=== PATIENT | male | born 1980 | race Caucasian/White ===

== ENCOUNTER 2024-04-29 14:28 | Emergency (ER) | payer OTHER, SELFPAY ==
[2024-04-29 14:32] VITALS: BP 162/92
--- NOTE | 2024-04-29 16:52 | ED.SKININJ ---
HPI-Injury
General
Chief Complaint: Skin Problem
Source: patient
Exam Limitations: none
Time Seen by Provider: 04/29/24 16:15
History of Present Illness-Injury
Initial Injury comments:
43-year-old male presents with persistently inflamed cyst to the right side of the anterior upper chest/neck. This started about 2 weeks ago got very inflamed and drained fluid he was on Keflex. The cyst persists. He denies fevers. No prior
issues similar to this
Past History
Past History
ED Past Medical History: None
ED Past Surgical History: None
Social History
Tobacco: Non-smoker
Alcohol: None
Drug: None
Personal:
Living: with family
Employment: Employed (Transmission Technician)
Family History
Family History: Early CAD and CAD; Negative Sudden
Phy Exam
Physical Exam
Physical Exam:
General: Well-appearing male no acute respiratory distress
Skin: 1 cm diameter slightly fluctuant mobile nodule in the subcutaneous tissue right upper chest no current drainage. Mild surrounding erythema
Extremities: No cyanosis
Course
Vital Signs
Initial and Last Documented VS:
Initial Vital Signs
Temp Pulse Resp BP Pulse Ox
97.9 F 71 16 162/92 99
04/29/24 14:32 04/29/24 14:32 04/29/24 14:32 04/29/24 14:32 04/29/24 14:32
Last Documented Vital Signs
Temp Pulse Resp BP Pulse Ox
97.9 F 71 16 162/92 99
04/29/24 14:32 04/29/24 14:32 04/29/24 14:32 04/29/24 14:32 04/29/24 14:32
MDM/Problems Addressed
Differential Diagnosis Includes:
Patient has cystlike structure right upper chest/lateral right neck. Suspect sebaceous cyst versus abscess. Discussed with patient treatment options. We decided to incise and drain. The area was cleansed and anesthetized with 1% lidocaine with
epinephrine. 11 blade was used a small amount of purulent material of was return followed by sebaceous material. I was able to visualize some of the wall of the sebaceous cyst and these pieces were removed. A dressing was applied he was discharged
*Critical Care Note
Total Time (30-74mins, 75-104mins- exclusive of procedures): Not Applicable
ED Attending Note
-
Portions of this chart may have been created with voice recognition software.� Occasional wrong word or��sound alike� substitutions may have occurred due to the inherent limitations of voice recognition software.
Discharge Plan
Departure
Patient Disposition: Home (Routine Discharge)
Date of Disposition: 04/29/24
Time of Disposition: 16:54
Patient with high blood pressure during this ER visit?: No
Discharge Problem:
Sebaceous cyst
Referrals:
Naila Mcguire CRNP [Family Provider] -
Activity Restrictions/Additional Instructions:
Keep clean. Continue with warm compresses. Return if worse otherwise follow-up with professor of oceanography for persistent symptoms
Interventions
Interventions:
ED-Skin Assessment Last Done: 04/29/24 16:12
Discharge Date and Time
Print Language: VENEZUELAN
[2024-04-29 17:15] VITALS: BP 157/96
== END 2024-04-29 17:18 | disposition home or self-care (01) ==
LOC: EMR 14:28
PROVIDERS: EMERGENCY PHYSICIAN Emergency Medicine; FAMILY PHYSICIAN Nurse Practitioner Adult Health
DX: L72.3 Sebaceous cyst (principal)
CPT/HCPCS: 10060; 99282